=== PATIENT | male | born 1990 | race Caucasian/White ===

== ENCOUNTER 2019-12-18 10:52 | Emergency (ER) | payer BC, MEDICAID ==
--- NOTE | 2019-12-18 11:24 | EDM.PDOC ---
ED HPI GENERAL MEDICAL PROBLEM - General Chief Complaint: Laceration Stated Complaint: L POINTER FINGER LAC Time Seen by Provider: 12/18/19 11:24 - History of Present Illness INITIAL COMMENTS - FREE TEXT/NARRATIVE: 29-year-old male presents the emergency room with a laceration on his left index finger. Patient was using a drywall knife and sliced the side of his finger near the tip. He is having some bleeding to the area otherwise no significant problem. Patient denies any other injury associated with this most unfortunate event. Left Finger-Index Pain Score (Numeric/FACES): 6 - Related Data Allergies Allergy/AdvReac Type Severity Reaction Status Date / Time red dye Allergy Severe Headache Verified 12/18/19 11:18 Home Meds: Home Meds . [No Known Home Meds] 12/18/19 [History] ED ROS GENERAL - Review of Systems Review Of Systems: See Below Constitutional: Reports: No Symptoms Respiratory: Reports: No Symptoms Cardiovascular: Reports: No Symptoms GI/Abdominal: Reports: No Symptoms ED EXAM, SKIN/RASH Exam: See Below Exam Limited By: No Limitations General Appearance: Alert, No Apparent Distress Respiratory/Chest: No Respiratory Distress, Lungs Clear, Normal Breath Sounds Cardiovascular: Regular Rate, Rhythm, No Edema, No Murmur Extremities: Other (Examination of his left index finger shows a slice superficial through the skin this was an ovoid laceration with the complete area of skin removed. The area of bleeding is about 0.4 cm the entire area is roughly 1 cm. There is nothing to repair. This will granulate in.) Course - Vital Signs Last Recorded V/S: Last Vital Signs Temp 36.9 C 12/18/19 11:09 Pulse 79 12/18/19 11:09 Resp 18 12/18/19 11:09 BP 135/68 12/18/19 11:09 Pulse Ox 99 12/18/19 11:09 - Orders/Labs/Meds Orders: Active Orders 24 hr Category Date Time Status Vaccines to be Administered [RC] PER UNIT ROUTINE Care 12/18/19 11:31 Active Meds: Medications Discontinued Medications Generic Name Dose Route Start Last Admin Trade Name Freq PRN Reason Stop Dose Admin Diphtheria/Tetanus/Acell Pertussis 0.5 ml 12/18/19 11:31 12/18/19 11:52 Adacel IM 12/18/19 11:32 0.5 ml .ONCE ONE Administration - Re-Assessments/Exams Free Text/Narrative Re-Assessment/Exam: 12/18/19 13:00 This laceration should not be repaired. Patient had quick clot applied and stop bleeding. Put a nonstick dressing over this and to gauze will have him keep this in place at least 24 hours preferably longer after this and use Band-Aid with bacitracin. Departure - Departure Time of Disposition: 13:01 Disposition: Home, Self-Care 01 Clinical Impression: Laceration of left index finger - Discharge Information Instructions: Laceration Care, Adult, [id number] Referrals: PCP,None [Primary Care Provider] - Forms: ED Department Discharge Additional Instructions: Return to the emergency room with any questions problems or worsening symptoms. Keep the dressing in place at least 24 hours preferably 48 hours good after this use a Band-Aid with some bacitracin. This will be tender until it starts to heal. Keep the area clean and dry as you can while it is healing. Follow-up with your regular healthcare provider in 1 week if needed. Or follow- up at the [facility] [phone] Sepsis Event Note (ED) - Evaluation Sepsis Screening Result: No Definite Risk - Focused Exam Vital Signs: Vital Signs Temp Pulse Resp BP Pulse Ox 12/18/19 11:09 36.9 C 79 18 135/68 99 - My Orders Last 24 Hours: My Active Orders 12/18/19 11:31 Vaccines to be Administered [RC] PER UNIT ROUTINE - Assessment/Plan Last 24 Hours: My Active Orders 12/18/19 11:31 Vaccines to be Administered [RC] PER UNIT ROUTINE
[2019-12-18] MEDS ORDERED: Diphtheria,Pertussis(Acell),Tetanus Vaccine 0.5 ML Syringe IM ONE (11:31)
== END 2019-12-18 13:15 | disposition home or self-care (01) ==
LOC: JD.ED 10:52
DX: S61.211A Laceration without foreign body of left index finger without damage to nail, initial encounter (principal); Z91.041 Radiographic dye allergy status; Z23 Encounter for immunization; W26.0XXA Contact with knife, initial encounter
CPT/HCPCS: 90471; 90715; 99282; 99282-25